=== PATIENT | male | born 1975 | race American Indian/Alaskan Native ===

== ENCOUNTER 2017-02-13 23:36 | Emergency (ER) | payer OTHER ==
[2017-02-14 01:52] LABS: Alanine Aminotransferase 13 units/L (7-56); Albumin 3.2 g/dL (3.9-5); Albumin/Globulin Ratio 0.6 %; Alkaline Phosphatase 56 units/L (35-129); Anion Gap 17 mmol/L; BUN/Creatinine Ratio 13.33; Bilirubin,Total 0.6 mg/dL (0.1-1.2); Blood Urea Nitrogen 12 mg/dL (9-20); Calcium 8.8 mg/dL (8.4-10.2); Carbon Dioxide 22 mmol/L (22-30); Glucose 76 mg/dL (75-100); Lipase 29 units/L (13-60); Potassium 3.8 mmol/L (3.6-5.0); Sodium 132 mmol/L (137-145); Total Protein 8.9 g/dL (6.3-8.2)
[2017-02-14 02:00] LABS: Basophils % (Auto) 0.7 % (0.0-1.8); Hematocrit 37.9 % (35.5-45.6); Hemoglobin 12.5 gm/dl (11.8-15.2); Mean Corpuscular HGB Conc 33 % (32-34); Mean Corpuscular Hemoglobin 29 pg (28-32); Mean Corpuscular Volume 88 fl (84-94); Platelet Count 224 K/mm3 (140-440); Red Blood Count 4.32 M/mm3 (3.65-5.03); White Blood Count 5.3 K/mm3 (4.5-11.0)
[2017-02-14 08:08] LABS: Mucus,Urine 3+ /HPF
[2017-02-14 08:13] LABS: Bilirubin,Urine NEG (Negative); Blood,Urine SM (Negative); Ketones,Urine TR mg/dL (Negative); Leukocyte Esterase,Urine TR (Negative); Nitrite,Urine NEG (Negative)
[2017-02-14] MEDS ORDERED: NACL 0.9% 1000 ML 1,000 ML IV ONE (09:45)
[2017-02-14] MEDS ORDERED: MORPHINE IV ONE ×2 (09:45→12:33)
[2017-02-14] MEDS ORDERED: DILAUDID IV ONE (09:45)
--- NOTE | 2017-02-14 09:46 | Emergency Department Report ---
<ANDRE MEDELLIN - Last Filed: 02/14/17 16:05> ED Abdominal Pain HPI - General Chief Complaint: Abdominal Pain Stated Complaint: ABD PAIN Time Seen by Provider: 02/14/17 09:35 Source: patient, RN notes reviewed Mode of arrival: Wheelchair Limitations: No Limitations - History of Present Illness Initial Comments: This is a 42-year-old male, he is previously unknown to me. He reports a past medical history of HIV, currently on highly active antiretroviral therapy, atriptila, he does not know his CD4 count, he does not know his viral load. He presents to the ER with abdominal pain. The abdominal pain is sharp. It is diffuse. It is all over the place. There is mild nausea. There is no testicular pain. No irritative or obstructive urinary symptoms. No chest pain. No shortness of breath. MD Complaint: abdominal pain -: Gradual Location: diffuse Severity scale (0 -10): 10 Quality: aching Consistency: constant Improves With: rest Worsens With: movement Associated Symptoms: nausea, anorexia - Related Data Home Medications Medication Instructions Recorded Confirmed Last Taken Efavirenz/Emtricitab/Tenofovir 1 each PO QDAY 02/14/17 02/14/17 Unknown [Atripla Tablet] Previous Rx's Medication Instructions Recorded Last Taken Type Dicyclomine [Bentyl] 10 mg PO QID PRN #20 capsule 02/14/17 Unknown Rx Ketorolac [Toradol] 10 mg PO Q6H PRN #20 tablet 02/14/17 Unknown Rx Ondansetron [Zofran Odt] 4 mg PO QID PRN #20 tab.rapdis 02/14/17 Unknown Rx Allergies Allergy/AdvReac Type Severity Reaction Status Date / Time No Known Allergies Allergy Verified 02/14/17 00:41 ED Review of Systems ROS: Stated complaint: ABD PAIN Other details as noted in HPI Constitutional: malaise. denies: fever Eyes: denies: vision change ENT: denies: epistaxis Respiratory: denies: cough Cardiovascular: denies: chest pain Gastrointestinal: abdominal pain Genitourinary: denies: urgency, dysuria Musculoskeletal: denies: back pain Skin: denies: lesions Neurological: weakness Psychiatric: anxiety ED Past Medical Hx - Past Medical History Previous Medical History?: Yes Hx HIV: Yes - Surgical History Past Surgical History?: Yes Additional Surgical History: keloid removed - Medications Home Medications: Home Medications Medication Instructions Recorded Confirmed Last Taken Type Dicyclomine [Bentyl] 10 mg PO QID PRN #20 capsule 02/14/17 Unknown Rx Efavirenz/Emtricitab/Tenofovir 1 each PO QDAY 02/14/17 02/14/17 Unknown History [Atripla Tablet] Ketorolac [Toradol] 10 mg PO Q6H PRN #20 tablet 02/14/17 Unknown Rx Ondansetron [Zofran Odt] 4 mg PO QID PRN #20 tab.rapdis 02/14/17 Unknown Rx ED Physical Exam - General Limitations: No Limitations General appearance: alert, in no apparent distress - Head Head exam: Present: atraumatic, normocephalic - Eye Eye exam: Present: normal appearance, EOMI. Absent: nystagmus - ENT ENT exam: Present: normal exam, normal orophraynx, mucous membranes moist, normal external ear exam - Neck Neck exam: Present: normal inspection, full ROM. Absent: tenderness, meningismus - Respiratory Respiratory exam: Present: normal lung sounds bilaterally. Absent: respiratory distress, wheezes, rales, rhonchi, stridor, chest wall tenderness - Cardiovascular Cardiovascular Exam: Present: regular rate, normal rhythm, normal heart sounds. Absent: bradycardia, tachycardia, irregular rhythm, systolic murmur, diastolic murmur, rubs, gallop - GI/Abdominal GI/Abdominal exam: Present: soft, tenderness, normal bowel sounds. Absent: distended, guarding, rebound, rigid, pulsatile mass - Rectal Rectal exam: Present: deferred - exam: Present: normal inspection. Absent: testicular tenderness External exam: Present: normal external exam, other (there is no testicular tenderness, there is normal testicular lie bilaterally, there is normal cremasteric reflex bilaterally) - Extremities Exam Extremities exam: Present: normal inspection, full ROM, normal capillary refill. Absent: tenderness, pedal edema, joint swelling, calf tenderness - Back Exam Back exam: Present: normal inspection, full ROM. Absent: tenderness, CVA tenderness (R), CVA tenderness (L), muscle spasm, paraspinal tenderness, vertebral tenderness - Neurological Exam Neurological exam: Present: alert, oriented X3, other (Extraocular movements intact. Tongue midline. No facial droop. Facial sensation intact to light touch in the V1, V2, V3 distribution bilaterally. 5 and 5 strength in 4 extremities.. Sensation is intact to light touch in 4 extremities.). Absent: motor sensory deficit - Psychiatric Psychiatric exam: Present: normal affect, normal mood - Skin Skin exam: Present: warm, dry, intact, normal color. Absent: rash ED Course Vital Signs 02/14/17 02/14/17 02/14/17 00:36 08:07 10:57 Temperature 98.5 F 97.6 F Pulse Rate 97 H 64 73 Respiratory 22 18 12 Rate Blood Pressure 96/66 109/74 Blood Pressure 90/50 [Right] O2 Sat by Pulse 100 99 Oximetry 02/14/17 02/14/17 10:58 14:49 Temperature 98.3 F Pulse Rate 61 Respiratory 12 12 Rate Blood Pressure Blood Pressure 94/56 [Right] O2 Sat by Pulse 99 100 Oximetry - Reevaluation(s) Reevaluation #1: 02/14/17 10:57 differential diagnosis: Perforation versus diverticulitis versus colitis versus appendicitis Assessment and plan: 42-year-old male with diffuse abdominal pain and tenderness. He will be treated symptomatically. Laboratory studies reviewed and are essentially nondiagnostic. CT scan of the abdomen and pelvis is ordered. Results are pending. Reevaluation #2: 02/14/17 12:33 CT scan negative, but the appendix is not identified. The patient is sleeping comfortably, I have not witnessed any active vomiting. I go back to reevaluate the patient, and he indicates that he is still having pain. 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 Given that the appendix is not discretely identified, a CT scan with oral contrast is ordered. Reevaluation #3: 02/14/17 14:42 Patient has completed oral contrast. He is resting comfortably. Repeat CT scan is pending. Reevaluation #4: 02/14/17 16:05 CT scan with oral contrast interpretation is pending. Patient sleeping comfortably. Abdomen soft on repeat examination. Care is transferred to Dr. Rhoades plan to discharge assuming CT scan negative for acute disease ED Medical Decision Making - Lab Data Result diagrams: 02/14/17 01:50 02/14/17 01:03 Vital Signs 02/14/17 02/14/17 00:36 08:07 Temperature 98.5 F 97.6 F Pulse Rate 97 H 64 Respiratory 22 18 Rate Blood Pressure 96/66 109/74 O2 Sat by Pulse 100 Oximetry Lab Results 02/14/17 02/14/17 02/14/17 Range/Units 01:03 01:50 07:48 WBC 5.3 (4.5-11.0) K/mm3 RBC 4.32 (3.65-5.03) M/mm3 Hgb 12.5 (11.8-15.2) gm/dl Hct 37.9 (35.5-45.6) % MCV 88 (84-94) fl MCH 29 (28-32) pg MCHC 33 (32-34) % RDW 14.0 (13.2-15.2) % Plt Count 224 (140-440) K/mm3 Lymph % (Auto) 29.9 (13.4-35.0) % [place] % (Auto) 14.1 H (0.0-7.3) % Eos % (Auto) 1.0 (0.0-4.3) % Baso % (Auto) 0.7 (0.0-1.8) % Lymph # 1.6 (1.2-5.4) K/mm3 [place] # 0.7 (0.0-0.8) K/mm3 Eos # 0.1 (0.0-0.4) K/mm3 Baso # 0.0 (0.0-0.1) K/mm3 Seg Neutrophils % 54.3 (40.0-70.0) % Seg Neutrophils # 2.9 (1.8-7.7) K/mm3 Sodium 132 L (137-145) mmol/L Potassium 3.8 (3.6-5.0) mmol/L Chloride 97.0 L (98-107) mmol/L Carbon Dioxide 22 (22-30) mmol/L Anion Gap 17 mmol/L BUN 12 (9-20) mg/dL Creatinine 0.9 (0.8-1.5) mg/dL Estimated GFR > 60 ml/min BUN/Creatinine Ratio 13.33 % Glucose 76 (75-100) mg/dL Calcium 8.8 (8.4-10.2) mg/dL Total Bilirubin 0.6 (0.1-1.2) mg/dL AST 21 (5-40) units/L ALT 13 (7-56) units/L Alkaline Phosphatase 56 (35-129) units/L Total Protein 8.9 H (6.3-8.2) g/dL Albumin 3.2 L (3.9-5) g/dL Albumin/Globulin Ratio 0.6 % Lipase 29 (13-60) units/L Urine Color Shaniqua (Yellow) Urine Turbidity Clear (Clear) Urine pH 5.0 (5.0-7.0) Ur Specific [place] 1.034 H (1.003-1.030) Urine Protein 100 mg/dl (Negative) mg/dL Urine Glucose (UA) Neg (Negative) mg/dL Urine Ketones Tr (Negative) mg/dL Urine Blood Sm (Negative) Urine Nitrite Neg (Negative) Ur Reducing Substances Not Reportable Urine Bilirubin Neg (Negative) Urine Ictotest Not Reportable Urine Urobilinogen 2.0 (<2.0) mg/dL Ur Leukocyte Esterase Tr (Negative) Urine WBC (Auto) 6.0 (0.0-6.0) /HPF Urine RBC (Auto) 12.0 (0.0-6.0) /HPF U Epithel Cells (Auto) < 1.0 (0-13.0) /HPF Urine Mucus 3+ /HPF - Radiology Data Radiology results: pending, report reviewed, image reviewed ct scan with IV contrast negative for acute disease Critical care attestation.: If time is entered above; I have spent that time in minutes in the direct care of this critically ill patient, excluding procedure time. ED Disposition Clinical Impression: Abdominal pain Disposition: DISCHARGED TO HOME OR SELFCARE Is pt being admited?: No Does the pt Need Aspirin: No Condition: Good Instructions: Abdominal Pain (ED) Additional Instructions: Take the pain medication, nausea medication as directed. Follow up with a primary care doctor within the next [address] for [address] Micah Alvarez is a local primary care doctor. [facility] is a local medical clinic. Return to the ER right away with new pain, worsened pain, migration of pain, fevers or chills, intractable nausea or vomiting, inability to tolerate liquid feeds. Prescriptions: Dicyclomine [Bentyl] 10 mg PO QID PRN #20 capsule PRN Reason: Pain Ketorolac [Toradol] 10 mg PO Q6H PRN #20 tablet PRN Reason: Pain Ondansetron [Zofran Odt] 4 mg PO QID PRN #20 tab.rapdis PRN Reason: Nausea Referrals: [facility] [Provider Group] - 3-5 Days PRIMARY CARE, [Primary Care Provider] - 3-5 Days MICAH ALVAREZ MD [Staff Physician] - 3-5 Days LULU OLIVEROS MD [Staff Physician] - 3-5 Days <ERIC RHOADES - Last Filed: 02/14/17 18:14> ED Course - Consultations Consultation #1: 02/14/17 18:[address] Oliveros community service organization director GI doctor regarding CT findings and symptoms. Recommended close outpatient follow-up and evaluation. ED Medical Decision Making - Lab Data Result diagrams: 02/14/17 01:50 02/14/17 01:03 - Radiology Data Radiology results: report reviewed CT abdomen and pelvis oral contrast: Nonspecific mural thickening with luminal narrowing in the terminal ileum, distal ileum, and possible cecum. Changes reflect edema, inflammation, infection, or inflammatory bowel disease. - Medical Decision Making Patient was signed out to me by Dr Medellin. CT report discussed with GI. Patient was discharged with medications prescribed by Dr. Medellin and outpatient GI follow-up will be provided. Pt provided a copy of his ct report ED Disposition Is pt being admited?: No Time of Disposition: 18:11
--- NOTE | 2017-02-14 12:27 | Cat Scan Report ---
CT of the abdomen and pelvis with IV contrast. Findings: The study is technically limited without oral contrast. The Liver and spleen are normal. The pancreas and kidneys are normal. There is a paucity of retroperitoneal fat, but no adenopathy is seen. There no pelvic masses or abnormal fluid collections. No mesenteric inflammation is seen. There is no free air. The appendix is not identified, but there is no radiographic evidence of appendicitis. Impression: Negative study.
[2017-02-14] MEDS ORDERED: ZOFRAN IV ONE (12:37)
[2017-02-14] MEDS ORDERED: TORADOL IV ONE (12:37)
--- NOTE | 2017-02-14 17:32 | Cat Scan Report ---
FINAL REPORT EXAM: CT ABDOMEN PELVIS WO CON HISTORY: abd pain n/v TECHNIQUE: CT examination of the ABDOMEN without IV contrast but now with oral contrast CT exanimation of the PELVIS without IV contrast but now with oral contrast PRIORS: 02/14/2017 with IV contrast only FINDINGS: Slight physiologic atelectasis in both lung bases posteriorly. Small triangular nonspecific nodule along the right minor fissure is suggestive of a pulmonary lymph node. Slight degenerative change in the regional skeleton. Nonspecific multiple lucent lesions are noted in the sacrum and iliac wing bilaterally. The largest on the right is noted laterally measuring 12 mm. The largest on the left is noted medially measuring 12 mm. These may reflect variance of ossification but raise suspicion of lytic lesions. Smaller lesions are also noted in the lumbar spine and thoracic spine. Normal noncontrast appearance of the liver, gallbladder, adrenals, pancreas, and spleen. Normal caliber abdominal aorta and IVC. Normal-appearing kidneys without hydronephrosis. There is residual IV contrast in the renal collecting system bilaterally. The exam is again severely limited from a paucity of anatomical intraperitoneal fat to separate adjacent organs and structures. The ureters are largely obscured by adjacent soft tissues except where they contain IV contrast. Intestinal loops are again also difficult to independently assess. Intact anterior abdominal wall without hernia. No definite abnormality in the visualized portion of the stomach and duodenum. No definite small bowel distention in the abdomen and pelvis. Oral contrast reaches the sigmoid colon suggesting against obstruction. No definite pelvic free fluid. Streak artifact from dense IV contrast in the urinary bladder partly obscures the pelvis. The urinary bladder itself appears to be normal. No definite rectal or sigmoid abnormality. No gross ascites, free air, or colonic distention. Normal-appearing retrocecal appendix. In the right lower quadrant, there is nonspecific mural thickening in the region of the terminal ileum. There also appears to be slight mural thickening in the cecum. Terminal ileum lumen appears narrowed. IMPRESSION: Nonspecific mural thickening with luminal narrowing in the terminal ileum, distal ileum, and possibly cecum. Changes may reflect edema, inflammation, infection, or inflammatory bowel disease Nonspecific multiple lucent lesions in the skeleton may reflect variation of ossification. Suspicion is raised, however, of lytic lesions. Consider followup with whole body bone scan.
[2017-02-14 18:26] VITALS: BP 100/73
== END 2017-02-14 18:30 | disposition home or self-care (01) ==
LOC: ED 23:36
DX: R10.84 Generalized abdominal pain (principal); Z21 Asymptomatic human immunodeficiency virus [HIV] infection status
CPT/HCPCS: 36415; 74176; 74177; 80053; 81001; 83690; 85025; 96361; 96374; 96375; 99284; J1170; J1885; J2270; J2405; J7030; Q9967

== ENCOUNTER 2021-09-07 14:57 | Emergency (ER) | payer SELFPAY ==
[2021-09-07] MEDS ORDERED: SODIUM CHLORIDE 0.9% 1000 ML 1,000 ML IV ONE (15:38)
--- NOTE | 2021-09-07 15:41 | Event Note ---
ED Screening Note Date of service: 09/07/21 Time: 15:39 ED Screening Note: The patient is a 46-year-old male presenting with a chief complaint of lower chest upper abdominal pain. Patient is a poor historian but states that he somehow fell and when he came to he had pain in his lower chest and upper abdomen. This initial assessment/diagnostic orders/clinical plan/treatment(s) is/are subject to change based on patients health status, clinical progression and re- assessment by fellow clinical providers in the ED. Further treatment and workup at subsequent clinical providers discretion. Patient/guardian urged not to elope from the ED as their condition may be serious if not clinically assessed and managed. Initial orders include: CBC, BMP, CK CK-MB troponin, lipase, INR, UDS, EtOH, chest x-ray, EKG
--- NOTE | 2021-09-07 15:57 | XRay Report ---
CHEST 1 VIEW 09/07/2021 2:50 PM INDICATION / CLINICAL INFORMATION: chest pain. COMPARISON: None available. FINDINGS: SUPPORT DEVICES: None. HEART / MEDIASTINUM: No significant abnormality. LUNGS / PLEURA: No significant pulmonary or pleural abnormality. No pneumothorax. ADDITIONAL FINDINGS: No significant additional findings. IMPRESSION: 1. No acute findings. Signer Name: Chino Gloria DO Signed: 09/07/2021 3:52 PM Workstation Name: [email or web address]
[2021-09-07 16:21] LABS: Basophils % (Auto) 0.8 % (0.0-1.8); Eosinophils # (Auto) 0.1 K/mm3 (0.0-0.4); Eosinophils % (Auto) 2.8 % (0.0-4.3); Hematocrit 39.2 % (35.5-45.6); Hemoglobin 12.7 gm/dl (11.8-15.2); Lymphocytes # (Auto) 1.1 K/mm3 (1.2-5.4); Lymphocytes % (Auto) 34.3 % (13.4-35.0); Mean Corpuscular HGB Conc 33 % (32-34); Mean Corpuscular Volume 90 fl (84-94); Monocytes # (Auto) 0.3 K/mm3 (0.0-0.8); Monocytes % (Auto) 10.2 % (0.0-7.3); Platelet Count 354 K/mm3 (140-440); Red Blood Count 4.38 M/mm3 (3.65-5.03)
[2021-09-07 16:26] LABS: INR 1.05 (0.87-1.13)
[2021-09-07 16:45] LABS: BUN/Creatinine Ratio 19; Blood Urea Nitrogen 17 mg/dL (9-20); Calcium 8.9 mg/dL (8.4-10.2); Creatine Kinase MB 1.7 ng/mL (0.0-4.0); Hemolysis Index 10
[2021-09-07 18:11] VITALS: BP 100/65
--- NOTE | 2021-09-07 18:54 | Emergency Department Report ---
ED Chest Pain HPI - General Chief Complaint: Chest Pain Stated Complaint: CHEST PAIN/HYPOTENSION Time Seen by Provider: 09/07/21 16:23 Source: patient Mode of arrival: Ambulatory Limitations: No Limitations - History of Present Illness Initial Comments: Chief complaint: I fell asleep outside HPI: This is a 46-year-old male with history of HIV who presents with chest pain and "sleepiness". He was found laying outside by bystanders. He admitted to [facility] prior to arrival. He has nonspecific chest pain. Patient would not describe chest pain. Denies shortness of breath denies headache. Denies fever. MD Complaint: chest pain -: Gradual, unknown Onset: during rest Severity: mild Severity scale (0 -10): 0 Consistency: now resolved Improves With: nothing Worsens With: nothing - Related Data Home Medications Medication Instructions Recorded Confirmed Last Taken Efavirenz/Emtricit/Tenofovr Df 1 each PO QDAY 02/14/17 02/14/17 Unknown [Atripla Tablet] Previous Rx's Medication Instructions Recorded Last Taken Type Dicyclomine [Bentyl] 10 mg PO QID PRN #20 capsule 02/14/17 Unknown Rx Ketorolac [Toradol] 10 mg PO Q6H PRN #20 tablet 02/14/17 Unknown Rx Ondansetron [Zofran Odt] 4 mg PO QID PRN #20 tab.rapdis 02/14/17 Unknown Rx Allergies Allergy/AdvReac Type Severity Reaction Status Date / Time No Known Allergies Allergy Verified 02/14/17 00:41 Heart Score - HEART Score History: Slightly suspicious EKG: Non-specific Age: 45-65 Risk factors: No known risk factors Troponin: < normal limit HEART Score: 2 - EKG Read Time Time EKG Completed: 15:14 EKG Read Time: 15:14 - Critical Actions Critical Actions: 0-3 pts:0.9-1.7%risk of adverse cardiac event.Candidate for discharge ED Review of Systems ROS: Stated complaint: CHEST PAIN/HYPOTENSION Other details as noted in HPI Comment: All other systems reviewed and negative Constitutional: denies: chills, fever, malaise Respiratory: denies: cough, shortness of breath Cardiovascular: chest pain Gastrointestinal: denies: abdominal pain ED Past Medical Hx - Past Medical History Previous Medical History?: Yes Hx HIV: Yes - Surgical History Past Surgical History?: Yes Additional Surgical History: keloid removed - Social History Smoking Status: Current Every Day Smoker Substance Use Type: Alcohol - Medications Home Medications: Home Medications Medication Instructions Recorded Confirmed Last Taken Type Dicyclomine [Bentyl] 10 mg PO QID PRN #20 capsule 02/14/17 Unknown Rx Efavirenz/Emtricit/Tenofovr Df 1 each PO QDAY 02/14/17 02/14/17 Unknown History [Atripla Tablet] Ketorolac [Toradol] 10 mg PO Q6H PRN #20 tablet 02/14/17 Unknown Rx Ondansetron [Zofran Odt] 4 mg PO QID PRN #20 tab.rapdis 02/14/17 Unknown Rx ED Physical Exam - General Limitations: No Limitations General appearance: alert, in no apparent distress - Head Head exam: Present: atraumatic, normocephalic - Eye Eye exam: Present: normal appearance - ENT ENT exam: Present: mucous membranes moist - Neck Neck exam: Present: normal inspection, full ROM - Respiratory Respiratory exam: Present: normal lung sounds bilaterally. Absent: respiratory distress, wheezes, rales, rhonchi - Cardiovascular Cardiovascular Exam: Present: regular rate, normal rhythm, normal heart sounds. Absent: systolic murmur, diastolic murmur, rubs, gallop - GI/Abdominal GI/Abdominal exam: Present: soft, normal bowel sounds. Absent: distended, tenderness, guarding, rebound - Rectal Rectal exam: Present: deferred - Extremities Exam Extremities exam: Present: normal inspection - Neurological Exam Neurological exam: Present: alert, oriented X3 - Psychiatric Psychiatric exam: Present: normal affect, normal mood - Skin Skin exam: Present: warm, dry, intact, normal color. Absent: rash ED Course Vital Signs 09/07/21 09/07/21 09/07/21 15:16 15:17 18:09 Temperature 98 F Pulse Rate 84 87 Respiratory 16 16 Rate Blood Pressure 91/64 Blood Pressure 100/65 [Left] O2 Sat by Pulse 96 96 100 Oximetry ED Medical Decision Making - Lab Data Result diagrams: 09/07/21 16:05 09/07/21 16:05 Laboratory Results - last 24 hr 09/07/21 09/07/21 09/07/21 16:05 16:05 16:05 WBC 3.4 L RBC 4.38 Hgb 12.7 Hct 39.2 MCV 90 MCH 29 MCHC 33 RDW 13.0 L Plt Count 354 Lymph % (Auto) 34.3 [place] % (Auto) 10.2 H Eos % (Auto) 2.8 Baso % (Auto) 0.8 Lymph # (Auto) 1.1 L [place] # (Auto) 0.3 Eos # (Auto) 0.1 Baso # (Auto) 0.0 Seg Neutrophils % 51.9 Seg Neutrophils # 1.7 L PT 14.9 INR 1.05 Sodium 134 L Potassium 3.8 Chloride 100.1 Carbon Dioxide 21 L Anion Gap 17 BUN 17 Creatinine 0.9 Estimated GFR > 60 BUN/Creatinine Ratio 19 Glucose 95 Calcium 8.9 Total Creatine Kinase 95 CK-MB (CK-2) 1.7 CK-MB (CK-2) Rel Index 1.7 Troponin T < 0.010 Lipase Plasma/Serum Alcohol 09/07/21 09/07/21 16:05 16:05 WBC RBC Hgb Hct MCV MCH MCHC RDW Plt Count Lymph % (Auto) [place] % (Auto) Eos % (Auto) Baso % (Auto) Lymph # (Auto) [place] # (Auto) Eos # (Auto) Baso # (Auto) Seg Neutrophils % Seg Neutrophils # PT INR Sodium Potassium Chloride Carbon Dioxide Anion Gap BUN Creatinine Estimated GFR BUN/Creatinine Ratio Glucose Calcium Total Creatine Kinase CK-MB (CK-2) CK-MB (CK-2) Rel Index Troponin T Lipase 29 Plasma/Serum Alcohol < 0.01 - EKG Data -: EKG Interpreted by In EKG shows normal: sinus rhythm, axis, intervals, QRS complexes Rate: normal - EKG Data 09/07/21 18:51 EKG obtained 1514 EKG interpreted by ga Normal sinus rhythm rate 80 bpm normal axis normal intervals no ST-T sign ischemia - Radiology Data Radiology results: report reviewed Chest radiograph: 1 view no acute findings - Medical Decision Making Patient desired to sleep throughout his ED stay and during my history and physical. He hesitantly stated that he may have had chest pain. He stated that he was found sleeping outside when he awakened. He admitted to marijuana use. I suspect polysubstance use. No indication of cardiac disease. I suspect intoxication is patient's primary condition at this time. He is discharged home. He does not have any pain at this time. EKG chest radiograph labs all unremarkable. Critical care attestation.: If time is entered above; I have spent that time in minutes in the direct care of this critically ill patient, excluding procedure time. ED Disposition Clinical Impression: Marijuana use Disposition: HOME / SELF CARE / HOMELESS Is pt being admited?: No Does the pt Need Aspirin: No Condition: Stable Referrals: JONATHAN CASIANO MD [Staff Physician] - 3-5 Days
--- NOTE | 2021-09-09 13:55 | Electrocardiograph Report ---
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
== END 2021-09-07 19:22 | disposition home or self-care (01) ==
LOC: ED 14:57
DX: F12.90 Cannabis use, unspecified, uncomplicated (principal); Z21 Asymptomatic human immunodeficiency virus [HIV] infection status; Z98.890 Other specified postprocedural states; F17.200 Nicotine dependence, unspecified, uncomplicated
CPT/HCPCS: 36415; 71045; 80048; 80320; 82550; 82553; 83690; 84484; 85025; 85610; 93005; 96360; 99284; G0480

== ENCOUNTER 2021-10-31 21:50 | Emergency (ER) | payer SELFPAY ==
[2021-10-31 23:14] VITALS: BP 108/74
[2021-11-01] MEDS ORDERED: KETOROLAC 60 MG/2 ML INJ IM ONE (02:01)
[2021-11-01] MEDS ORDERED: LIDOCAINE-MPF (1%) 10 MG/1 ML VIAL 5 ML INFILTRATI ONE (02:01)
--- NOTE | 2021-11-01 03:45 | Emergency Department Report ---
- General Chief complaint: Pain General Stated complaint: SORE SIDE Source: patient Mode of arrival: Ambulatory Limitations: No Limitations - History of Present Illness Initial comments: 46-year-old male was emerge from clinic with 3-day history of left hip pain/redness to wound area of unknown etiology. Pain is tender to touch with palpation. No discharge. No wound motion no abrasion. Report no known traumatic event. No fever, chills, sweats. No chest pain palpitation. No nausea, no vomiting. No hemoptysis hematemesis hematochezia. No hematuria is present. MD complaint: insect bite/sting, abscess/boil, discoloration -: Gradual Severity: moderate Quality: aching, dull Consistency: constant Worsens with: none, movement Context: none Associated symptoms: denies other symptoms Treatments Prior to Arrival: none - Related Data Home Medications Medication Instructions Recorded Confirmed Last Taken Efavirenz/Emtricit/Tenofovr Df 1 each PO QDAY 02/14/17 02/14/17 Unknown [Atripla Tablet] Previous Rx's Medication Instructions Recorded Last Taken Type Dicyclomine [Bentyl] 10 mg PO QID PRN #20 capsule 02/14/17 Unknown Rx Ketorolac [Toradol] 10 mg PO Q6H PRN #20 tablet 02/14/17 Unknown Rx Ondansetron [Zofran Odt] 4 mg PO QID PRN #20 tab.rapdis 02/14/17 Unknown Rx Ketorolac [Toradol] 10 mg PO Q6H PRN #15 tablet 11/01/21 Unknown Rx Sulfamethoxazole/Trimethoprim 1 each PO BID #20 tablet 11/01/21 Unknown Rx [Bactrim Ds] cephALEXin [Keflex] 500 mg PO Q6HR #40 capsule 11/01/21 Unknown Rx Allergies Allergy/AdvReac Type Severity Reaction Status Date / Time No Known Allergies Allergy Verified 02/14/17 00:41 Abscess Boil HPI - HPI Chief Complaint: Pain General Stated Complaint: SORE SIDE Home Medications: Home Medications Medication Instructions Recorded Confirmed Last Taken Efavirenz/Emtricit/Tenofovr Df 1 each PO QDAY 02/14/17 02/14/17 Unknown [Atripla Tablet] Previous Rx's Medication Instructions Recorded Last Taken Type Dicyclomine [Bentyl] 10 mg PO QID PRN #20 capsule 02/14/17 Unknown Rx Ketorolac [Toradol] 10 mg PO Q6H PRN #20 tablet 02/14/17 Unknown Rx Ondansetron [Zofran Odt] 4 mg PO QID PRN #20 tab.rapdis 02/14/17 Unknown Rx Ketorolac [Toradol] 10 mg PO Q6H PRN #15 tablet 11/01/21 Unknown Rx Sulfamethoxazole/Trimethoprim 1 each PO BID #20 tablet 11/01/21 Unknown Rx [Bactrim Ds] cephALEXin [Keflex] 500 mg PO Q6HR #40 capsule 11/01/21 Unknown Rx Allergies/Adverse Reactions: Allergies Allergy/AdvReac Type Severity Reaction Status Date / Time No Known Allergies Allergy Verified 02/14/17 00:41 ED Review of Systems ROS: Stated complaint: SORE SIDE Other details as noted in HPI Comment: All other systems reviewed and negative ED Past Medical Hx - Past Medical History Hx HIV: Yes - Surgical History Additional Surgical History: keloid removed - Social History Smoking Status: Current Every Day Smoker Substance Use Type: Alcohol - Medications Home Medications: Home Medications Medication Instructions Recorded Confirmed Last Taken Type Dicyclomine [Bentyl] 10 mg PO QID PRN #20 capsule 02/14/17 Unknown Rx Efavirenz/Emtricit/Tenofovr Df 1 each PO QDAY 02/14/17 02/14/17 Unknown History [Atripla Tablet] Ketorolac [Toradol] 10 mg PO Q6H PRN #20 tablet 02/14/17 Unknown Rx Ondansetron [Zofran Odt] 4 mg PO QID PRN #20 tab.rapdis 02/14/17 Unknown Rx Ketorolac [Toradol] 10 mg PO Q6H PRN #15 tablet 11/01/21 Unknown Rx Sulfamethoxazole/Trimethoprim 1 each PO BID #20 tablet 11/01/21 Unknown Rx [Bactrim Ds] cephALEXin [Keflex] 500 mg PO Q6HR #40 capsule 11/01/21 Unknown Rx ED Physical Exam - General Limitations: No Limitations ED Course Vital Signs 10/31/21 10/31/21 11/01/21 23:13 23:14 02:35 Temperature 97.6 F Pulse Rate 109 H Respiratory 22 16 Rate Blood Pressure 108/74 O2 Sat by Pulse 100 Oximetry Critical care attestation.: If time is entered above; I have spent that time in minutes in the direct care of this critically ill patient, excluding procedure time. ED Disposition Disposition: 01 HOME / SELF CARE / HOMELESS Is pt being admited?: No Does the pt Need Aspirin: No Condition: Stable Instructions: Cellulitis, Adult, Skin Abscess Prescriptions: Sulfamethoxazole/Trimethoprim [Bactrim Ds] 1 each PO BID #20 tablet cephALEXin [Keflex] 500 mg PO Q6HR #40 capsule Ketorolac [Toradol] 10 mg PO Q6H PRN #15 tablet PRN Reason: Pain Referrals: PRIMARY CAREMD [Primary Care Provider] - 3-5 Days JONATHAN CASIANO MD [Staff Physician] - 3-5 Days
== END 2021-11-01 05:25 | disposition home or self-care (01) ==
LOC: ED 21:50
DX: M25.552 Pain in left hip (principal); F17.200 Nicotine dependence, unspecified, uncomplicated
CPT/HCPCS: 96372; 99282; J0696; J1885; J3490

== ENCOUNTER 2021-12-24 18:53 | Emergency (ER) | payer SELFPAY ==
[2021-12-24 18:59] VITALS: BP 112/66
== END 2021-12-25 09:27 | disposition left against medical advice (07) ==
LOC: ED 18:53
DX: R52 Pain, unspecified (principal); Z53.21 Procedure and treatment not carried out due to patient leaving prior to being seen by health care provider